=== PATIENT | male | born 1950 | race Caucasian/White ===

== ENCOUNTER 2017-05-05 14:33 | Emergency (ER) | payer OTHER ==
[~2017-05-05] VITALS: Ht 172.7 cm; Wt 99.8 kg
[~2017-05-05 14:33] MED LIST: ASPI81CH; [UNRECOGNIZED DRUG - REMARK]
[2017-05-05] MEDS ORDERED: CYCL10 PO (15:36)
[2017-05-05] MEDS ORDERED: Norco 5-325 Ta1 EACH PO (15:36)
== END 2017-05-05 17:38 | disposition home or self-care (01) ==
LOC: ER 14:33
DX: M54.2 Cervicalgia (principal); Z79.82 Long term (current) use of aspirin; V89.2XXA Person injured in unspecified motor-vehicle accident, traffic, initial encounter
CPT/HCPCS: 72040; 99283

== ENCOUNTER 2018-06-23 08:34 | Emergency (ER) | payer OTHER ==
[~2018-06-23] VITALS: Ht 172.7 cm; Wt 94.3 kg
[~2018-06-23 08:34] MED LIST changes: +CYCL10 PO; +Norco 5-325 Ta1 EACH PO
[2018-06-23] MEDS ORDERED: IBUP800 PO (11:18)
[2018-06-23] MEDS ORDERED: Acetaminophen-1 EAC1 PO (11:18)
== END 2018-06-23 13:30 | disposition home or self-care (01) ==
LOC: ER 08:34
DX: S02.40EA Zygomatic fracture, right side, initial encounter for closed fracture (principal); S02.81XA Fracture of other specified skull and facial bones, right side, initial encounter for closed fracture; R04.0 Epistaxis; X58.XXXA Exposure to other specified factors, initial encounter; Y09 Assault by unspecified means
CPT/HCPCS: 70150; 70480; 99284-25